=== PATIENT | female | born 1990 | race Caucasian/White ===

== ENCOUNTER 2016-05-21 19:59 | Emergency (ER) | payer OTHER ==
[2016-05-21 20:10] VITALS: TEMP 98.6; BMI 23.1
[2016-05-21] MEDS ORDERED: ACETAMINOPHEN 325 MG TABLET (FP) PO ONE (20:10)
--- NOTE | 2016-05-21 20:32 | PDOC ---
History of Present Illness - General History Source: Patient <Josue Fernández - Last Filed: 05/21/16 22:44> - General History Source: Patient Exam Limitations: No Limitations - History of Present Illness Initial Comments: 05/21/16 20:49 The patient is a 25 year old 19 weeks female(), with no significant past medical history, who presents to the emergency department complaining of vaginal bleeding for approximately 2 days. The patient reports heavy bleeding yesterday, which improved as the day went on. The patient reports associated cramping. Today, she woke up with spotting and cramping, but states she is no longer spotting. The patient denies any associated dysuria, hematuria, frequency, or urgency. She reports taking daily vitamins, but no other medications. The patients last [employer]CH[employer]IGN [employer] appointment was early in March. The patient reports her next ARCHIT[employer] DESIGN [employer] appointment is in May.She reports a history of 1 miscarriage approximately 3 years ago. The patient denies any history of clotting or bleeding disorders. The patient states she has had a headache for several weeks. She reports taking tylenol with mild relief.The patient denies any nausea, vomiting, diarrhea, or constipation. The patient denies any fever, chills, cough, or dizziness. The patient denies any recent travel or sick contacts. Allergies: None reported. Past Surgical History: None reported. Social History: Non-smoker. Denies alcohol or drug use. OB/GY: Dr. Cole <Karma Dale - Last Filed: 05/21/16 23:01> - General Chief Complaint: Vaginal Bleeding Stated Complaint: ABDOMINAL PAIN/19 WKS Time Seen by Provider: 05/21/16 20:08 Past History - Psycho/Social/Smoking Cessation Hx Suicidal Ideation: No Smoking History: Never smoked Have you smoked in the past 12 months: No Number of Cigarettes Smoked Daily: 0 Information on smoking cessation initiated: No Hx Alcohol Use: No Drug/Substance Use Hx: No <Josue Fernández - Last Filed: 05/21/16 22:44> <Karma Dale - Last Filed: 05/21/16 23:01> - Past Medical History Allergies/Adverse Reactions: Allergies Allergy/AdvReac Type Severity Reaction Status Date / Time No Known Allergies Allergy Verified 05/21/16 20:07 Home Medications: Ambulatory Orders Nitrofurantoin Monohyd/M-Cryst [Macrobid] 100 mg PO BID #20 capsule 05/21/16 Review of Systems - Review of Systems Able to Perform ROS?: Yes Comments:: 05/21/16 20:52 CONSTITUTIONAL: Absent: fever, no chills, no fatigue EYES: Absent: visual changes ENT: Absent: ear pain, no sore throat CARDIOVASCULAR: Absent: chest pain, no palpitations RESPIRATORY: Absent: cough, no SOB GI: Present: +Abdominal cramping Absent: No nausea, no vomiting, no constipation, no diarrhea GENITOURINARY: Present: +vaginal bleeding/spotting Absent: dysuria, no frequency, no hematuria MUSCULOSKELETAL: Absent: back pain, no arthralgia, no myalgia SKIN: Absent: rash NEURO: Present: +headache <Karma Dale - Last Filed: 05/21/16 23:01> *Physical Exam - Vital Signs Last Vital Signs Temp Pulse Resp BP Pulse Ox 98.6 F 113 H 14 129/82 97 05/21/16 20:08 05/21/16 20:08 05/21/16 20:08 05/21/16 20:08 05/21/16 20:08 <Josue Fernández - Last Filed: 05/21/16 22:44> - Vital Signs Last Vital Signs Temp Pulse Resp BP Pulse Ox 98.6 F 113 H 14 129/82 97 05/21/16 20:08 05/21/16 20:08 05/21/16 20:08 05/21/16 20:08 05/21/16 20:08 - Physical Exam Comments: 05/21/16 20:52 GENERAL: Well-appearing, well-nourished. No apparent distress. HEENT: Normocephalic, atraumatic. PERRL, EOM intact. CARDIOVASCULAR: Normal S1, S2. Regular rate and rhythm. PULMONARY: Clear to auscultation bilaterally. ABDOMEN: Soft, non-distended, non-tender. PELVIC: Defer to US. EXTREMITIES: Normal ROM in all four extremities. No gross deformities. SKIN: Warm, dry. No rash NEUROLOGICAL: No focal neurological deficits. <Karma Dale - Last Filed: 05/21/16 23:01> ED Treatment Course - LABORATORY CBC & Chemistry Diagram: 02/23/17 20:00 05/21/16 20:00 - Medications Given in the ED: ED Medications Discontinued Medications Generic Name Dose Route Start Last Admin Trade Name Freq PRN Reason Stop Dose Admin Acetaminophen 650 mg 05/21/16 20:10 05/21/16 20:12 Tylenol - PO 05/21/16 20:11 650 mg ONCE ONE Administration <oJsue Fernández - Last Filed: 05/21/16 22:44> - LABORATORY CBC & Chemistry Diagram: 05/21/16 20:00 05/21/16 20:00 - ADDITIONAL ORDERS Additional order review: 05/21/16 20:00 RBC 4.39 MCV 88.7 MCHC 34.3 RDW 13.3 MPV 8.0 Neutrophils % 77.1 Lymphocytes % 16.0 Monocytes % 5.9 Eosinophils % 0.8 Basophils % 0.2 - RADIOLOGY Radiograph Interpretation: 05/21/16 23:00 EXAM: Pelvic US INTERPRETED BY: Dr. Sutherland REVIEWED BY: Dr. Fernández IMPRESSION: Single live intrauterine in breech presentation with average sonographic gestational age of 18 weeks 3 days. Post follow-up is needed to evaluate anatomy. - Medications Given in the ED: ED Medications Discontinued Medications Generic Name Dose Route Start Last Admin Trade Name Freq PRN Reason Stop Dose Admin Acetaminophen 650 mg 05/21/16 20:10 05/21/16 20:12 Tylenol - PO 05/21/16 20:11 650 mg ONCE ONE Administration <Karma Dale - Last Filed: 05/21/16 23:01> Medical Decision Making - Medical Decision Making 05/21/16 22:47 Dr. Fernández: The scribe's documentation has been prepared under my direction and personally reviewed by me in its entirery. I confirm that the note above accurately reflects all work, treatment, procedures, and medical decision making performed by me. Pt is 18 weeks with breech presentation. Pt found to have a UTI as well. Rx Macrobid. Will be discharged <Josue Fernández - Last Filed: 05/21/16 22:44> *DC/Admit/Observation/Transfer - Discharge Dispostion Admit: No <Josue Fernández - Last Filed: 05/21/16 22:44> - Attestations Scribe Attestion: 05/21/16 20:52 Documentation prepared by Karma Dale, acting as medical chief technician for Josue Fernández DO. <Karma Dale - Last Filed: 05/21/16 23:01> Diagnosis at time of Disposition: Qualifiers: Weeks of gestation: 19 weeks Qualified Code(s): Z3A.19 - 19 weeks gestation of UTI (urinary tract infection) Qualifiers: Urinary tract infection type: site unspecified Hematuria presence: without hematuria Qualified Code(s): N39.0 - Urinary tract infection, site not specified - Discharge Dispostion Disposition: HOME Condition at time of disposition: Stable - Prescriptions Prescriptions: Nitrofurantoin Monohyd/M-Cryst [Macrobid] 100 mg PO BID #20 capsule - Referrals Referrals: Inocencio Daniels MD [Staff Physician] - - Patient Instructions Printed Discharge Instructions: Medications and , DI for Urinary Tract Infection (UTI)
[2016-05-21 20:43] LABS: BASOPHIL 0.2 % (0-2.0); EOSINOPHIL 0.8 % (0-4.5); MCH 30.4 pg (25.7-33.7); MCHC 34.3 g/dl (32.0-36.0); MEAN CELL VOLUME 88.7 fl (80-96); NEUTROPHILS 77.1 % (42.8-82.8); PLATELET COUNT 228 K/MM3 (134-434); RDW 13.3 % (11.6-15.6); WHITE BLOOD COUNT 12.2 K/mm3 (4.0-10.0)
[2016-05-21 20:59] LABS: URINE APPEARANCE SLCLOUDY; URINE BILIRUBIN NEGATIVE (NEGATIVE); URINE BLOOD NEGATIVE (NEGATIVE); URINE COLOR YELLOW; URINE GLUCOSE (UA) NEGATIVE (NEGATIVE); URINE KETONE TRACE (NEGATIVE); URINE NITRITE NEGATIVE (NEGATIVE); URINE UROBILINOGEN NEGATIVE E.U./dl (0.2-1.0)
[2016-05-21 21:00] LABS: URINE LEUK ESTERASE 1+ (NEGATIVE); URINE PROTEIN 1+ (NEGATIVE)
[2016-05-21 21:01] LABS: GRANULAR CASTS 2 /lpf; URINE BACTERIA MANY /hpf (NONE SEEN); URINE MUCUS MANY; URINE RBC 3 /hpf (0-3); URINE WBC 8 /hpf (3-5); YEAST RARE
[2016-05-21 21:08] LABS: ALBUMIN 3.6 g/dl (3.4-5.0); ANION GAP 10 (8-16); CALCIUM 9.1 mg/dL (8.5-10.1); CO2 24 mmol/L (21-32); CREATININE 0.5 mg/dL (0.55-1.02); GLUCOSE,RANDOM 81 mg/dL (74-106); SGOT/AST 24 U/L (15-37); SGPT/ALT 36 U/L (12-78)
[2016-05-21 21:13] LABS: ALK PHOS 41 U/L (45-117); BILIRUBIN,TOTAL 0.5 mg/dL (0.2-1.0); TOT PROT 6.8 g/dl (6.4-8.2)
[2016-05-21] MEDS ORDERED: NITROFURANTOIN MACROCRYSTAL 50 MG CAPSULE (FP) ONE (22:52)
[2016-05-21 22:55] VITALS: BP 122/69; PULSE 90
[2016-05-21] MEDS ORDERED: NITROFURANTOIN MACROCRYSTAL 50 MG CAPSULE (FP) PO SCH (23:00)
== END 2016-05-21 22:54 | disposition home or self-care (01) ==
LOC: JER 19:59
DX: O23.42 Unspecified infection of urinary tract in pregnancy, second trimester (principal); Z3A.18 18 weeks gestation of pregnancy
CPT/HCPCS: 36415; 76816-TC; 80053; 81003; 81015; 85025; 86850; 86900; 86901; 87086; 99283-25